=== PATIENT | female | born 1970 | race Caucasian/White ===

== ENCOUNTER 2018-01-20 12:22 | Emergency (ER) | payer OTHER ==
[2018-01-20 12:37] VITALS: BP 176/90
[2018-01-20] MEDS ORDERED: LIDOCAINE 5% (700 MG) TRANSDERMAL ADH..PATCH TP ONE (13:30)
[2018-01-20] MEDS ORDERED: IBUPROFEN 800 MG TABLET PO ONE (13:31)
--- NOTE | 2018-01-20 13:33 | ER Document Report ---
HPI - HPI Patient complains to provider of: Right arm and shoulder pain Onset: Other - 4 days Onset/Duration: Persistent Quality of pain: Achy Pain Level: 3 Context: She presents complaining of right arm shoulder and upper extremity pain for the past 4 days. Patient denies any injury. Patient is right-hand dominant. Patient denies any fever or headache symptoms. Associated Symptoms: Other - Right upper extremity pain. denies: Fever, Headache, Nausea, Vomiting Exacerbated by: Movement Relieved by: Denies Similar symptoms previously: No Recently seen / treated by doctor: No - ROS ROS below otherwise negative: Yes Systems Reviewed and Negative: Yes All other systems reviewed and negative - CONSTITUTIONAL Constitutional: DENIES: Fever, Chills - NEURO Neurology: DENIES: Headache, Weakness - GASTROINTESTINAL Gastrointestinal: DENIES: Nausea, Patient vomiting - MUSCULOSKELETAL Musculoskeletal: REPORTS: Extremity pain - right arm and shoulder, Back Pain - DERM Skin Color: Normal Skin Problems: None Past Medical History - General Information source: Patient - Social History Smoking Status: Current Every Day Smoker Smoking Education Provided: Yes Frequency of alcohol use: Occasional Drug Abuse: Marijuana Family History: Reviewed & Not Pertinent Patient has suicidal ideation: No Patient has homicidal ideation: No Endocrine Medical History: Reports: Hx Hypothyroidism Renal/ Medical History: Denies: Hx Peritoneal Dialysis Past Surgical History: Reports: Hx Breast Surgery Vertical Provider Document - CONSTITUTIONAL Agree With Documented VS: Yes Exam Limitations: No Limitations General Appearance: WD/WN, No Apparent Distress - INFECTION CONTROL TRAVEL OUTSIDE OF THE [place] IN LAST 30 DAYS: No - HEENT HEENT: Atraumatic, Normocephalic - NECK Neck: Other - Right paraspinal cervical tenderness, no midline tenderness, step- off or deformity. negative: Lymphadenopathy-Left, Lymphadenopathy-Right - RESPIRATORY Respiratory: Breath Sounds Normal, No Respiratory Distress - CARDIOVASCULAR Cardiovascular: Regular Rate, Regular Rhythm Pulses: Normal: Radial - BACK Back: Normal Inspection. negative: CVA Tenderness-Right, CVA Tenderness-Left - MUSCULOSKELETAL/EXTREMETIES Musculoskeletal/Extremeties: ABRAHAM MOURA - NEURO Level of Consciousness: Awake, Alert, Appropriate Motor/Sensory: No Motor Deficit Notes: Normal strength and muscle tone in the bilateral upper extremities - DERM Integumentary: Warm, Dry, No Rash Course - Re-evaluation Re-evalutation: 01/20/18 Patient presents with symptoms concerning for cervical radicular pain. Patient without any midline tenderness. No fever. Normal strength and muscle tone to bilateral upper extremities. - Vital Signs Vital signs: Temp Pulse Resp BP Pulse Ox 98.7 F 88 18 176/90 H 98 01/20/18 12:34 01/20/18 12:34 01/20/18 12:34 01/20/18 12:34 01/20/18 12:34 Discharge - Discharge Clinical Impression: Cervical radicular pain Condition: Stable Disposition: HOME, SELF-CARE Instructions: Muscle Relaxers ([facility]), Radiculopathy ([facility]) Additional Instructions: Return immediately for any new or worsening symptoms Followup with your primary care provider, call tomorrow to make a followup appointment You can use [id number] topical lidocaine patches to help with your pain symptoms Prescriptions: Cyclobenzaprine HCl [Flexeril 10 Mg Tablet] 10 mg PO TID #15 tablet Naproxen [Naprosyn 250 Nmg Tablet] 1 tab PO BID #14 tablet Forms: Smoking Cessation Education, Return to Work Referrals: [facility] [Provider Group] - Follow up as needed [facility] [Provider Group] - Follow up as needed
== END 2018-01-20 13:43 | disposition home or self-care (01) ==
LOC: ER 12:22
DX: M54.12 Radiculopathy, cervical region (principal); F17.200 Nicotine dependence, unspecified, uncomplicated
CPT/HCPCS: 99283

== ENCOUNTER 2018-05-25 15:41 | Emergency (ER) | payer SELFPAY ==
[2018-05-25] MEDS ORDERED: CLONIDINE HCL 0.1 MG TABLET PO ONE (16:27)
[2018-05-25] MEDS ORDERED: METOPROLOL SUCCINATE 50 MG TAB.SR.24H PO ONE (16:27)
--- NOTE | 2018-05-25 16:30 | ER Document Report ---
ED General - General Chief Complaint: High Blood Pressure Stated Complaint: BLOOD PRESSURE ISSUE Time Seen by Provider: 05/25/18 16:21 Notes: Chief complaint: Palpitation History of complain:( obtained from----patient) 47 years old female took pseudoephedrine this morning for nasal congestion towards the afternoon started having increased pressure sensation as well as heart felt like beating faster. Therefore concerned and came to the ED. No chest pain no left arm numbness tingling sensation nausea vomiting. Denies any headache focal weaknesses. Onset: As above today Duration: Few hours Severity: Moderate Quality: As above Context: Adverse effect of medication Exacerbating factor and relieving factors: REVIEW OF SYSTEMS: CONSTITUTIONAL : Denies fever, chills, or sweats. Denies recent illness. EENT: Denies eye, ear, throat, or mouth pain or symptoms. Denies nasal or sinus congestion or discharge. Denies throat, tongue, or mouth swelling or difficulty swallowing. CARDIOVASCULAR: Denies chest pain. Denies palpitations or racing or irregular heart beat. Denies ankle edema. RESPIRATORY: Denies cough, cold, or chest congestion. Denies shortness of breath, difficulty breathing, or wheezing. GASTROINTESTINAL: Denies distention. Denies nausea, vomiting, or diarrhea. Denies blood in vomitus, stools, or per rectum. Denies black, tarry stools. Denies constipation. GENITOURINARY: Denies difficulty urinating, painful urination, burning, frequency, blood in urine, or discharge. FEMALE GENITOURINARY: Denies vaginal bleeding, heavy or abnormal periods, irregular periods. Denies vaginal discharge or odor. MUSCULOSKELETAL: Denies back or neck pain or stiffness. Denies joint pain or swelling. SKIN: Denies rash, lesions or sores. HEMATOLOGIC : Denies easy bruising or bleeding. LYMPHATIC: Denies swollen, enlarged glands. NEUROLOGICAL: Denies confusion or altered mental status. Denies passing out or loss of consciousness. Denies dizziness or lightheadedness. Denies headache. Denies weakness or paralysis or loss of use of either side. Denies problems with gait or speech. Denies sensory loss, numbness, or tingling. Denies seizures. PSYCHIATRIC: Denies anxiety or stress. Denies depression, suicidal ideation, or homicidal ideation. ALL OTHER SYSTEMS REVIEWED AND NEGATIVE. PHYSICAL EXAMINATION: GENERAL: Well-appearing, well-nourished and in no acute distress. HEAD: Atraumatic, normocephalic. EYES: Pupils equal round and reactive to light, extraocular movements intact, conjunctiva are normal. ENT: Nares patent, oropharynx clear without exudates. Moist mucous membranes. NECK: Normal range of motion, supple without lymphadenopathy LUNGS: Breath sounds clear to auscultation bilaterally and equal. No wheezes rales or rhonchi. HEART: Regular rate and rhythm without murmurs ABDOMEN: Soft, nontender, nondistended abdomen. No guarding, no rebound. No masses appreciated. Examination of genitals-deferred Musculoskeletal: Normal range of motion, no pitting or edema. No cyanosis. NEUROLOGICAL: Cranial nerves grossly intact. Normal speech, normal gait. Normal sensory, motor exams PSYCH: Normal mood, normal affect. SKIN: Warm, Dry, normal turgor, no rashes or lesions noted. Dictation was performed using [employer] voice recognition software TRAVEL OUTSIDE OF THE [place] IN LAST 30 DAYS: No - HPI Notes: Dictated - Related Data Allergies/Adverse Reactions: acetaminophen [From Percocet] Allergy (Verified 05/25/18 15:44) oxycodone [From Percocet] Allergy (Verified 05/25/18 15:44) propoxyphene [From Darvocet-N] Allergy (Verified 05/25/18 15:44) Past Medical History - Social History Smoking Status: Current Every Day Smoker Chew tobacco use (# tins/day): No Frequency of alcohol use: None Drug Abuse: Marijuana Lives with: Family Family History: Reviewed & Not Pertinent Patient has suicidal ideation: No Patient has homicidal ideation: No - Past Medical History Cardiac Medical History: Reports: Hx Hypertension Endocrine Medical History: Reports: Hx Hypothyroidism Renal/ Medical History: Denies: Hx Peritoneal Dialysis Past Surgical History: Reports: Hx Breast Surgery, Hx Section Review of Systems - Review of Systems Notes: Dictated Physical Exam - Vital signs Vitals: Temp Pulse Resp BP Pulse Ox 98.4 F 111 H 18 195/114 H 100 05/25/18 15:49 05/25/18 15:49 05/25/18 15:49 05/25/18 15:49 05/25/18 15:49 - Notes Notes: Dictated Course - Vital Signs Vital signs: Temp Pulse Resp BP Pulse Ox 98.4 F 111 H 18 195/114 H 100 05/25/18 15:49 05/25/18 15:49 05/25/18 15:49 05/25/18 15:49 05/25/18 15:49 - Laboratory Result Diagrams: 05/25/18 17:00 05/25/18 17:00 Laboratory results interpreted by me: 05/25/18 05/25/18 17:00 17:00 WBC 14.3 H RDW 15.5 H Absolute Neutrophils 10.5 H AST 40 H Alkaline Phosphatase 136 H Discharge - Discharge Clinical Impression: Hypertension Qualifiers: Hypertension type: essential hypertension Qualified Code(s): I10 - Essential ( primary) hypertension Sinusitis Qualifiers: Sinusitis location: frontal Chronicity: acute Recurrence: non-recurrent Qualified Code(s): J01.10 - Acute frontal sinusitis, unspecified Condition: Fair Disposition: HOME, SELF-CARE Instructions: High Blood Pressure, Requiring Treatment ([facility]), Beta Blockers ( [facility]), Sinusitis ([facility]) Prescriptions: Cefdinir 300 mg PO BID #20 capsule Metoprolol Succinate [Toprol Xl] 25 mg PO DAILY #30 tab.er.24h
[2018-05-25 17:15] LABS: ABSOLUTE BASOPHILS # (AUTO) 0.2 10^3/uL (0.0-0.2); ABSOLUTE EOSINOPHILS # (AUTO) 0.4 10^3/uL (0.0-0.6); ABSOLUTE LYMPHOCYTES (AUTO) 2.1 10^3/uL (0.5-4.7); ABSOLUTE MONOCYTES (AUTO) 1.1 10^3/uL (0.1-1.4); ABSOLUTE NEUT (AUTO) 10.5 10^3/uL (1.7-8.2); BASOPHILS % (AUTO) 1.2 % (0-2); EOSINOPHILS % (AUTO) 3.1 % (0-6); HEMATOCRIT 37.5 % (36.0-47.0); HEMOGLOBIN 13.1 g/dL (12.0-15.5); LYMPHOCYTES % (AUTO) 14.6 % (13-45); MEAN CORPUSCULAR HEMOGLOBIN 32.6 pg (27.0-33.4); MEAN CORPUSCULAR HGB CONC 34.8 g/dL (32.0-36.0); MEAN CORPUSCULAR VOLUME 94 fl (80-97); MONOCYTES % (AUTO) 7.7 % (3-13); PLATELET COUNT 416 10^3/uL (150-450); RED BLOOD COUNT 4.01 10^6/uL (3.72-5.28); RED CELL DISTRIBUTION WIDTH 15.5 % (11.5-14.0); SEGMENTED NEUTROPHILS % (AUTO) 73.4 % (42-78); TOTAL CELLS COUNTED % (AUTO) 100 %; WHITE BLOOD COUNT 14.3 10^3/uL (4.0-10.5)
[2018-05-25 17:34] LABS: ALANINE AMINOTRANSFERASE 26 U/L (9-52); ALBUMIN 4.6 g/dL (3.5-5.0); ALKALINE PHOSPHATASE 136 U/L (38-126); ANION GAP 13 (5-19); ASPARTATE AMINO TRANSFERASE 40 U/L (14-36); BILIRUBIN,DIRECT 0.3 mg/dL (0.0-0.4); BILIRUBIN,TOTAL 0.7 mg/dL (0.2-1.3); BLOOD UREA NITROGEN 11 mg/dL (7-20); CALCIUM 9.8 mg/dL (8.4-10.2); CARBON DIOXIDE 23 mmol/L (22-30); CHLORIDE 107 mmol/L (98-107); GLUCOSE 95 mg/dL (75-110); POTASSIUM 4.5 mmol/L (3.6-5.0); SODIUM 142.8 mmol/L (137-145); TOTAL PROTEIN 7.7 g/dL (6.3-8.2)
[2018-05-25 18:19] VITALS: BP 152/107
== END 2018-05-25 18:18 | disposition home or self-care (01) ==
LOC: ER 15:41
DX: J01.10 Acute frontal sinusitis, unspecified (principal); I10 Essential (primary) hypertension; R00.2 Palpitations; R09.81 Nasal congestion; F17.200 Nicotine dependence, unspecified, uncomplicated; Z88.6 Allergy status to analgesic agent
CPT/HCPCS: 36415; 80053; 85025; 99283

== ENCOUNTER 2018-11-15 15:16 | Emergency (ER) | payer SELFPAY ==
[2018-11-15 15:48] VITALS: BP 168/106
[2018-11-15] MEDS ORDERED: KETOROLAC TROMETHAMINE 60 MG/2 ML SDV IM ONE (16:32)
--- NOTE | 2018-11-15 16:32 | ER Document Report ---
ED Medical Screen (RME) - General Chief Complaint: Hip Pain Stated Complaint: HIP PAIN Time Seen by Provider: 11/15/18 16:18 Mode of Arrival: Ambulatory Information source: Patient TRAVEL OUTSIDE OF THE [place] IN LAST 30 DAYS: No - Related Data Allergies/Adverse Reactions: acetaminophen [From Percocet] Allergy (Verified 11/15/18 15:35) oxycodone [From Percocet] Allergy (Verified 11/15/18 15:35) propoxyphene [From Darvocet-N] Allergy (Verified 11/15/18 15:35) Past Medical History - Past Medical History Cardiac Medical History: Reports: Hx Hypertension Endocrine Medical History: Reports: Hx Hypothyroidism Renal/ Medical History: Denies: Hx Peritoneal Dialysis Past Surgical History: Reports: Hx Breast Surgery, Hx Section Physical Exam - Vital signs Vitals: Temp Pulse Resp BP Pulse Ox 98.4 F 78 20 168/106 H 98 11/15/18 15:46 11/15/18 15:46 11/15/18 15:46 11/15/18 15:46 11/15/18 15:46 Course - Vital Signs Vital signs: Temp Pulse Resp BP Pulse Ox 98.4 F 78 20 168/106 H 98 11/15/18 15:46 11/15/18 15:46 11/15/18 15:46 11/15/18 15:46 11/15/18 15:46 Doctor's Discharge - Discharge Clinical Impression: Right leg pain Condition: Stable Disposition: HOME, SELF-CARE Additional Instructions: Please take medication as prescribed. As we discussed continuing to do range of motion exercises to your lower extremity as this may help with the pain. Follow-up with [facility] if the pain is not significantly improving over the next 2 to 3 days. Return to the emergency department with any new or worsening symptoms to include development of back pain, loss of control of bowels, urinary retention or development of fever. Prescriptions: Gabapentin [Neurontin 300 mg Capsule] 300 mg PO Q12 #20 capsule Forms: Return to Work
--- NOTE | 2018-11-17 10:13 | ER Document Report ---
HPI - HPI Time Seen by Provider: 11/15/18 16:18 Pain Level: 3 Notes: Patient is an otherwise healthy 48-year-old female presenting to the emergency department with chief complaint of right hip pain that started 3 days ago. Patient reports there is pain in her right buttock that radiates down the back of her leg. She states she has tried taking ibuprofen at home with no relief. The pain is worse with movement. - EENT EENT: DENIES: Sore Throat, Ear Pain, Eye problems - NEURO Neurology: DENIES: Headache, Weakness, Vision blurred, Dizzinesss / Vertigo - CARDIOVASCULAR Cardiovascular: DENIES: Chest pain - RESPIRATORY Respiratory: DENIES: Trouble Breathing, Coughing - GASTROINTESTINAL Gastrointestinal: DENIES: Abdominal Pain, Black / Bloody Stools - URINARY Urinary: DENIES: Dysuria, Urgency, Frequency - REPRODUCTIVE Reproductive: DENIES: :, Postmenopausal, Abnormal bleeding / discharge - MUSCULOSKELETAL Musculoskeletal: REPORTS: Extremity pain - Right Leg Past Medical History - General Information source: Patient - Social History Smoking Status: Current Every Day Smoker Chew tobacco use (# tins/day): No Frequency of alcohol use: Occasional Drug Abuse: None Family History: Reviewed & Not Pertinent Patient has suicidal ideation: No Patient has homicidal ideation: No - Past Medical History Cardiac Medical History: Reports: Hx Hypertension Endocrine Medical History: Reports: Hx Hypothyroidism Renal/ Medical History: Denies: Hx Peritoneal Dialysis Past Surgical History: Reports: Hx Breast Surgery, Hx Section Vertical Provider Document - CONSTITUTIONAL Notes: PHYSICAL EXAMINATION: GENERAL: Well-appearing, well-nourished and in no acute distress. HEAD: Atraumatic, normocephalic. EYES: Pupils equal round extraocular movements intact, conjunctiva are normal. ENT: Nares patent NECK: Normal range of motion LUNGS: No respiratory distress Musculoskeletal: Normal range of motion, no swelling, erythema or ecchymosis noted to patient's lower extremities. Normal dorsalis pedis pulse bilaterally. Normal strength and sensation bilaterally to lower extremities. NEUROLOGICAL: Normal speech, normal gait. PSYCH: Normal mood, normal affect. SKIN: Warm, Dry, normal turgor, no rashes or lesions noted. - INFECTION CONTROL TRAVEL OUTSIDE OF THE [place] IN LAST 30 DAYS: No Course - Re-evaluation Re-evalutation: Examination is most consistent with musculoskeletal strain. Patient does not have any history of DVT. She is a smoker but denies any use of oral contraceptives or hormone therapy, denies any recent travel. She has no unilateral leg swelling or erythema. She also denies chest pain or shortness of breath. I feel it is unlikely this is a DVT. Patient will be discharged home with pain medication, encouraged to follow-up with her primary care in the next 2 to 3 days of the pain persist, return to the emergency department with any new or worsening symptoms and patient verbalizes understanding and agreement with this plan. - Vital Signs Vital signs: Temp Pulse Resp BP Pulse Ox 98.4 F 78 20 168/106 H 98 11/15/18 15:46 11/15/18 15:46 11/15/18 15:46 11/15/18 15:46 11/15/18 15:46 Discharge - Discharge Clinical Impression: Right leg pain Condition: Stable Disposition: HOME, SELF-CARE Additional Instructions: Please take medication as prescribed. As we discussed continuing to do range of motion exercises to your lower extremity as this may help with the pain. Follow-up with [facility] if the pain is not significantly improving over the next 2 to 3 days. Return to the emergency department with any new or worsening symptoms to include development of back pain, loss of control of bowels, urinary retention or development of fever. Prescriptions: Gabapentin [Neurontin 300 mg Capsule] 300 mg PO Q12 #20 capsule Forms: Return to Work
== END 2018-11-15 16:58 | disposition home or self-care (01) ==
LOC: ER 15:16
DX: M79.604 Pain in right leg (principal); M25.551 Pain in right hip; F17.200 Nicotine dependence, unspecified, uncomplicated; I10 Essential (primary) hypertension
CPT/HCPCS: 99283; 96372; J1885

== ENCOUNTER 2018-12-05 20:15 | Emergency (ER) | payer SELFPAY ==
[2018-12-05] MEDS ORDERED: NORMAL SALINE 1000 ML 1,000 ML IV ONE (21:28)
[2018-12-05] MEDS ORDERED: METOCLOPRAMIDE HCL INJ/PF 10 MG/2 ML SDV IV ONE (21:28)
--- NOTE | 2018-12-05 21:30 | ER Document Report ---
ED Medical Screen (RME) - General Chief Complaint: Headache Stated Complaint: HEADACHE Notes: 48-year-old female with chief complaint of headache. States her headache started yesterday, she states she has a history of tension headaches which trigger migraines. She states she has some pain in the back of her head wrapping around the right side with her typical tension symptoms, she states that she started having a throbbing headache and she has vomited multiple times today as well. She denies fever, injury. TRAVEL OUTSIDE OF THE [place] IN LAST 30 DAYS: No - Related Data Allergies/Adverse Reactions: acetaminophen [From Percocet] Allergy (Verified 11/15/18 15:35) oxycodone [From Percocet] Allergy (Verified 11/15/18 15:35) propoxyphene [From Darvocet-N] Allergy (Verified 11/15/18 15:35) Past Medical History - Social History Chew tobacco use (# tins/day): No Frequency of alcohol use: None Drug Abuse: None - Past Medical History Cardiac Medical History: Reports: Hx Hypertension Neurological Medical History: Reports: Hx Migraine Endocrine Medical History: Reports: Hx Hypothyroidism Renal/ Medical History: Denies: Hx Peritoneal Dialysis Past Surgical History: Reports: Hx Breast Surgery, Hx Section Physical Exam - Vital signs Vitals: Temp Pulse Resp BP Pulse Ox 98.3 F 74 16 173/96 H 98 12/05/18 20:28 12/05/18 20:28 12/05/18 20:28 12/05/18 20:28 12/05/18 20:28 - General General appearance: Appears well In distress: None - Neurological Cognition: Normal Orientation: AAOx4 Silvina Coma Scale Eye Opening: Spontaneous Mellott Coma Scale Verbal: Oriented Silvina Coma Scale Motor: Obeys Commands Mellott Coma Scale Total: 15 Speech: Normal Cranial nerves: Normal Cerebellar coordination: Normal Motor strength normal: LUE, RUE, LLE, RLE Additional motor exam normals: Equal director biostatistics Course - Re-evaluation Re-evalutation: I have greeted and performed a rapid initial assessment of this patient. A comprehensive ED assessment and evaluation of the patient, analysis of test results and completion of the medical decision making process will be conducted by additional ED providers. - Vital Signs Vital signs: Temp Pulse Resp BP Pulse Ox 98.3 F 74 16 173/96 H 98 12/05/18 20:28 12/05/18 20:28 12/05/18 20:28 12/05/18 20:28 12/05/18 20:28
--- NOTE | 2018-12-05 23:04 | ER Document Report ---
ED Headache - General Chief Complaint: Headache Stated Complaint: HEADACHE Time Seen by Provider: 12/05/18 22:11 Primary Care Provider: [facility] [Provider Group] - Follow up as needed Notes: Patient is a 48-year-old female with chief complaint of headache. States her headache started yesterday, she states she has a history of tension headaches which trigger migraines. She states she has some pain in the back of her head wrapping around the right side with her typical tension symptoms, she states that she started having a throbbing headache and she has vomited multiple times today as well. She denies fever, injury. TRAVEL OUTSIDE OF THE [place] IN LAST 30 DAYS: No - Related Data Allergies/Adverse Reactions: acetaminophen [From Percocet] Allergy (Verified 11/15/18 15:35) oxycodone [From Percocet] Allergy (Verified 11/15/18 15:35) propoxyphene [From Darvocet-N] Allergy (Verified 11/15/18 15:35) Past Medical History - Social History Smoking Status: Current Every Day Smoker Chew tobacco use (# tins/day): No Frequency of alcohol use: None Drug Abuse: None Family History: Reviewed & Not Pertinent Patient has suicidal ideation: No Patient has homicidal ideation: No - Past Medical History Cardiac Medical History: Reports: Hx Hypertension Neurological Medical History: Reports: Hx Migraine Endocrine Medical History: Reports: Hx Hypothyroidism Renal/ Medical History: Denies: Hx Peritoneal Dialysis Past Surgical History: Reports: Hx Breast Surgery, Hx Section Physical Exam - Vital signs Vitals: Temp Pulse Resp BP Pulse Ox 98.3 F 74 16 173/96 H 98 12/05/18 20:28 12/05/18 20:28 12/05/18 20:28 12/05/18 20:28 12/05/18 20:28 Course - Vital Signs Vital signs: Temp Pulse Resp BP Pulse Ox 98.3 F 74 16 173/96 H 98 12/05/18 20:28 12/05/18 20:28 12/05/18 20:28 12/05/18 20:28 12/05/18 20:28 Discharge - Discharge Referrals: [facility] [Provider Group] - Follow up as needed
[2018-12-06] MEDS ORDERED: KETOROLAC TROMETHAMINE INJ/PF 30 MG/1 ML SDV IV ONE (01:45)
--- NOTE | 2018-12-06 01:45 | ER Document Report ---
ED Headache - General Chief Complaint: Headache Stated Complaint: HEADACHE Time Seen by Provider: 12/05/18 22:11 Primary Care Provider: [facility] [Provider Group] - Follow up as needed TRAVEL OUTSIDE OF THE [place] IN LAST 30 DAYS: No - HPI Notes: Patient is a 48-year-old female with a history of hypothyroidism, hypertension, migraines who presents to the emergency department with the chief complaint of a headache. Patient states that she woke up Tuesday morning with a tension-like headache. Patient states that she is attempted to take Dramamine, promethazine, Excedrin, ibuprofen, caffeine, increase of fluids to help with her headache but states that it has not improved. Patient states she does have a history of tension headaches that develops into a migraine which she gets about every 3 months. Patient states that since starting menopause her migraines have improved. Patient reports this feels like her normal tension headaches but more severe because it brought her to the emergency department. Patient has had nausea and multiple episodes of vomiting. Patient has photosensitivity. Patient does deny vision changes. Patient complains of dizziness with movement. Patient states that the pain is located to the back of her head/neck and radiates like a band on the top of her head to her forehead. Patient does state it feels like she is tense in her neck upper back. - Related Data Allergies/Adverse Reactions: acetaminophen [From Percocet] Allergy (Verified 11/15/18 15:35) oxycodone [From Percocet] Allergy (Verified 11/15/18 15:35) propoxyphene [From Darvocet-N] Allergy (Verified 11/15/18 15:35) Past Medical History - General Information source: Patient - Social History Smoking Status: Current Every Day Smoker Chew tobacco use (# tins/day): No Frequency of alcohol use: None Drug Abuse: None Family History: Reviewed & Not Pertinent Patient has suicidal ideation: No Patient has homicidal ideation: No - Past Medical History Cardiac Medical History: Reports: Hx Hypertension Pulmonary Medical History: Reports: None EENT Medical History: Reports: None Neurological Medical History: Reports: Hx Migraine Endocrine Medical History: Reports: Hx Hypothyroidism Renal/ Medical History: Reports: None. Denies: Hx Peritoneal Dialysis Malignancy Medical History: Reports: None GI Medical History: Reports: None Musculoskeletal Medical History: Reports None Skin Medical History: Reports None Psychiatric Medical History: Reports: None Traumatic Medical History: Reports: None Infectious Medical History: Reports: None Past Surgical History: Reports: Hx Breast Surgery, Hx Section Review of Systems - Review of Systems Constitutional: No symptoms reported EENT: See HPI Cardiovascular: No symptoms reported Respiratory: No symptoms reported Gastrointestinal: See HPI Genitourinary: No symptoms reported Female Genitourinary: No symptoms reported Musculoskeletal: No symptoms reported Skin: No symptoms reported Hematologic/Lymphatic: No symptoms reported Neurological/Psychological: See HPI Physical Exam - Vital signs Vitals: Temp Pulse Resp BP Pulse Ox 98.3 F 74 16 173/96 H 98 12/05/18 20:28 12/05/18 20:28 12/05/18 20:28 12/05/18 20:28 12/05/18 20:28 Interpretation: Hypertensive - Notes Notes: GENERAL: Well-appearing, well-nourished and in no acute distress. HEAD: Atraumatic, normocephalic. EYES: Pupils equal round and reactive to light, extraocular movements intact, sclera anicteric, conjunctiva are normal. ENT: TMs normal, nares patent, oropharynx clear without exudates. Moist mucous membranes. NECK: Normal range of motion, supple without lymphadenopathy or JVD. LUNGS: Breath sounds clear to auscultation bilaterally and equal. No wheezes rales or rhonchi. HEART: Regular rate and rhythm without murmurs, rubs or gallops. ABDOMEN: Soft, nontender, hyperactive bowel sounds. No guarding, no rebound. No masses appreciated. EXTREMITIES: Normal range of motion, no pitting or edema. No clubbing or cyanosis. PSYCH: Normal mood, normal affect. SKIN: Warm, Dry, normal turgor, no rashes or lesions noted. NEURO: Face symmetric. Tongue protrudes midline. Extraocular motions intact. Pupils are 3 mm and equally reactive. Normal speech, normal gait. 5 out of 5 strength in both the distal and proximal upper and lower extremities bilaterally. Sensation is grossly intact throughout. Finger to nose testing normal. Pronator drift normal. Course - Re-evaluation Re-evalutation: 12/06/18 01:56 Patient continues to have a headache despite IV fluids and reglan in triage. Patient neuro exam benign, patient resting on stretcher with lights dimmed. Additional medications ordered. Will continue to monitor. 12/06/18 03:55 Patient reports feeling much better after receiving medications as well as IV Robaxin. Patient reports that her headache is almost gone and rating it a 0.5/5 at this time. Patient states that she has much more comfortable and would like to attempt to drink. Will provide a PO challenge, if patient can tolerate will discharge home. Will discharge home with anti nausea medication and valium for her muscle tension. Patient tolerated PO challenge reports feeling much better. - Vital Signs Vital signs: Temp Pulse Resp BP Pulse Ox 97.6 F 60 16 179/97 H 100 12/06/18 04:30 12/06/18 04:30 12/06/18 04:30 12/06/18 04:30 12/06/18 04:30 Discharge - Discharge Clinical Impression: Headache Qualifiers: Headache type: tension-type Headache chronicity pattern: acute headache Intractability: not intractable Qualified Code(s): G44.209 - Tension-type headache, unspecified, not intractable Vomiting Qualifiers: Vomiting type: unspecified Vomiting Intractability: non-intractable Nausea presence: with nausea Qualified Code(s): R11.2 - Nausea with vomiting, unspecified Condition: Stable Disposition: HOME, SELF-CARE Instructions: Headache ([facility]), Intravenous (IV) Fluids ([facility]), Reglan ([facility]), Toradol Injection ([facility]) Additional Instructions: Today you are seen in the emergency department for a headache consistent with your tension type migraine. After receiving IV fluids, nausea medication and pain medication for your headache you have significantly improved. It was noted during your visit the your blood pressure was elevated please follow-up with your primary care physician for monitoring of this as your Metoprolol need to be adjusted. Return to the emergency department for any worsening signs or symptoms to include dizziness, severe headache, vomiting, change in mental status, or any other concerning signs or symptoms. You are being prescribed Zofran which is an anti nausea medication, please take this as needed. You are also being prescribed Valium, this is a type of medication that will help relax your muscles. This medication can make you drowsy, do not drive or operate heavy machinery while on this medication or mix with other sedating medications. Migraine Headache The physician feels that your symptoms are due to a migraine attack. Migraines are caused by changes in the blood vessels of the head. Arteries go into spasm, often causing warning symptoms that a headache may begin soon. As the spasm goes away, the vessels dilate and throb, causing the pounding pain of a migraine headache. Migraines often cause nausea and vomiting. The treatment of headaches varies with severity and cause of pain. Not all headaches need pain shots -- in fact, there is evidence that using narcotics for headaches may make them worse in the long run. The physician will determine the therapy that's in your best interest for this particular headache. Medications are available that may prevent migraines, or stop them as they first occur. If one medication is not helpful, try another. If migraines are frequent, be patient -- follow the doctor's recommendations. Call the physician if you are worsening, or if new symptoms arise. Prescriptions: Diazepam [Valium 5 mg Tablet] 1 - 2 tab PO TID PRN #10 tablet PRN Reason: Ondansetron [Zofran Odt 4 mg Tablet] 1 tab PO Q4 #15 tab.rapdis Forms: Return to Work Referrals: [facility] [Provider Group] - Follow up as needed
[2018-12-06] MEDS ORDERED: METHOCARBAMOL INJ/PF 1000 MG/10 ML SDV IV ONE (01:46)
[2018-12-06] MEDS ORDERED: DIPHENHYDRAMINE HCL 50 MG/ML VIAL IV ONE (01:46)
[2018-12-06 04:32] VITALS: BP 179/97
== END 2018-12-06 04:49 | disposition home or self-care (01) ==
LOC: ER 20:15
DX: G44.209 Tension-type headache, unspecified, not intractable (principal); R11.2 Nausea with vomiting, unspecified; F17.200 Nicotine dependence, unspecified, uncomplicated; E03.9 Hypothyroidism, unspecified; I10 Essential (primary) hypertension; Z88.6 Allergy status to analgesic agent
CPT/HCPCS: 99283; 96361; 96375; 96365; J1200; J2800; J1885; J2765; J7030